=== PATIENT | male | born 1960 | race African-American/Black ===

== ENCOUNTER 2024-02-27 12:17 | Emergency (ER) | payer OTHER ==
[2024-02-27] MEDS ORDERED: Acetaminophen 500 MG TAB ONE (12:40)
[2024-02-27] MEDS ORDERED: Ondansetron ODT 4 MG TAB ONE (12:40)
== END 2024-02-27 13:24 | disposition home or self-care (01) ==
LOC: ERS 12:17
DX: B34.9 Viral infection, unspecified (principal); Z55.6 Problems related to health literacy
CPT/HCPCS: 71045; 87428; Q0162